=== PATIENT | female | born 1945 | race Caucasian/White ===

== ENCOUNTER 2016-08-30 12:18 | Emergency (ER) | payer MEDICARE ==
[2016-08-30] MEDS ORDERED: ONDANSETRON HCL IV 4 MG/2 ML VIAL IV ONE (12:31)
[2016-08-30] MEDS ORDERED: 0.9 % SODIUM CHLORIDE 1,000 ML BAG IV ONE (12:31)
[2016-08-30] MEDS ORDERED: MORPHINE SULFATE 5 MG/ML PFS IVP ONE ×2 (12:42→15:28)
--- NOTE | 2016-08-30 12:42 | Emergency Department Record ---
History of Present Illness - General Chief Complaint: Abdominal Pain Stated Complaint: ABD PAIN,VOMITING Time Seen by Provider: 08/30/16 12:30 Source: Patient, Family Mode of Arrival: Ambulatory Limitations: No limitations - History of Present Illness Initial Comments: 71 yo female presents with abdominal discomfort starting . The pain is associated with nausea and vomiting. The pain is over the left flank and and back at times. She has had a kidney stone in the past with some similar symptoms. No definite fevers. No diarrhea or blood in the stools. She is having bowel movements. She states she has had decreased PO intake the last 2- 3 days. No rash. She has had her gall bladder removed, appendectomy, 3 C sections, hernia repair. Last surgery was about 10 years ago as [place]. Complaint: Abdominal pain Onset/Timin -: Days(s) Location: LLQ Radiation: L flank Severity: Moderate Quality: Aching Consistency: Constant - Related Data Home Medications Medication Instructions Recorded Confirmed Last Taken Fluticasone Propionate [Flovent] 12 gm IH QID PRN 08/30/16 08/30/16 1 Day Ago Furosemide [Lasix] 20 mg PO DAILY 08/30/16 08/30/16 1 Day Ago Allergies Allergy/AdvReac Type Severity Reaction Status Date / Time codeine AdvReac VOMITING Verified 08/30/16 12:27 Penicillins AdvReac VOMITING Verified 08/30/16 12:27 Travel Screening - Travel/Exposure Within Last 30 Days Have you traveled within the last 30 days?: No - Travel/Exposure Within Last Year Have you traveled outside the [place] in the last year?: No - Additonal Travel Details Have you been exposed to anyone with a communicable illness?: No - Travel Symptoms Symptom Screening: None Review of Systems Constitutional: Denies: Chills, Fever, Malaise, Weakness Eyes: Denies: Eye discharge ENT: Denies: Congestion, Ear pain, Throat pain Respiratory: Denies: Cough, Hemoptysis Cardiovascular: Denies: Chest pain, Palpitations, Syncope Endocrine: Denies: Fatigue, Polydipsia, Polyuria Gastrointestinal: Reports: Abdominal pain, Nausea, Vomiting. Denies: Diarrhea Genitourinary: Denies: Dysuria, Hematuria Musculoskeletal: Reports: Back pain. Denies: Arthralgia, Joint swelling, Myalgia Skin: Denies: Bruising, Change in color, Rash Neurological: Denies: Headache, Weakness Psychiatric: Denies: Anxiety Hematological/Lymphatic: Denies: Blood Clots, Easy bleeding, Easy bruising, Swollen glands Past Medical History - SOCIAL HISTORY Smoking Status: Never smoker Alcohol Use: None Drug Use: None - RESPIRATORY Hx Respiratory Disorders: Yes Hx COPD: Yes - CARDIOVASCULAR Hx Cardio Disorders: Yes Hx Hypertension: Yes - NEURO Hx Neuro Disorders: No - GI Hx GI Disorders: No - Hx Genitourinary Disorders: No - ENDOCRINE Hx Endocrine Disorders: Yes Hx Thyroid Disease: Yes - MUSCULOSKELETAL Hx Musculoskeletal Disorders: No - PSYCH Hx Psych Problems: Yes Hx Anxiety: Yes - HEMATOLOGY/ONCOLOGY Hx Hematology/Oncology Disorders: No Family Medical History Any Significant Family History?: Yes Hx Cancer: Mother, Brother/Sister *Cancer Comment: Leukemia, Lung Cancer Hx Dementia: Mother Hx Heart Disease: Father *Heart Comment: Heart Attack Physical Exam - General General Appearance: Oriented x3, Cooperative, Anxious Limitations: No limitations - Head Head exam: Normal inspection - Eye Eye exam: Normal appearance, PERRL. negative: Conjunctival injection, Periorbital swelling - ENT ENT exam: Normal exam, Mucous membranes moist Ear exam: Normal external inspection Nasal Exam: Normal inspection Mouth exam: Normal external inspection - Neck Neck exam: Normal inspection, Full ROM. negative: Tenderness - Respiratory Respiratory exam: Normal lung sounds bilaterally. negative: Respiratory distress - Cardiovascular Cardiovascular Exam: Regular rate, Normal rhythm, Normal heart sounds - GI/Abdominal GI/Abdominal exam: Soft, Tenderness (tender left lateral abdomen). negative: Diminished bowel sounds, Distended, Guarding, Rigid - Rectal Rectal exam: Deferred - exam: Deferred - Extremities Extremities exam: Normal inspection, Full ROM, Normal capillary refill. negative: Pedal edema, Tenderness - Back Back exam: Reports: Normal inspection, CVA tenderness (L), Full ROM, Tenderness. Denies: Muscle spasm, Rash noted - Neurological Neurological exam: Alert, Normal gait, Oriented X3 - Psychiatric Psychiatric exam: Normal affect, Normal mood - Skin Skin exam: Dry, Intact, Normal color, Warm Course Vital Signs 08/30/16 12:21 Temperature 97.3 F L Pulse Rate 77 Respiratory 18 Rate Blood Pressure 197/91 Pulse Ox 97 - Reevaluation(s) Reevaluation #1: EMR reviewed CT in January 2016 demonstrated 3mm UVJ stone with other bilateral intrarenal stones and diverticulosis without diverticulitis 08/30/16 12:51 Reevaluation #2: The CT scan demonstrated 5mm proximal stone with mild HN. Diverticulosis without diverticulitis. The patient is up to provide a UA. 08/30/16 13:46 08/30/16 13:47 Reevaluation #3: UA is negative for N and LE. 08/30/16 14:44 - Consultations Consultation #1: 15:00 I SEDRICK Lopez and Dr Charles of [facility]. We discussed the 3 days of pain, and vomiting with a proximal 5mm stone. They accept for transfer to ED for evaluation. Medical Decision Making - Lab Data Result diagrams: 08/30/16 12:45 08/30/16 12:45 Disposition Disposition: Transfer Clinical Impression: Kidney stone on left side Disposition: Acute Care Hospital Transfer Transfer To: [facility] Reason For Transfer: Renal Stone Urology Consult Accepting Physician: Nidhi Time Discussed w/Accepting Physician: 15:09 Condition: (2) Stable Forms: Patient Portal Access Time of Disposition: 15:09
[2016-08-30 12:49] LABS: BASO % 0.2 % (0-6); EOS % 0.3 % (0-6); GRAN % 76.9 % (47-80); HEMATOCRIT 45.6 % (35.0-47.0); HEMOGLOBIN 15.1 gm/dl (11.6-16.0); LYMPH % 15.3 % (16-45); MEAN CELL VOLUME 90.5 fl (81-97); MEAN CORPUSCULAR HGB CONC 33.1 g/dl (32-36); MEAN PLATELET VOLUME 9.4 fl (7.4-10.4); MONO % 7.3 % (0-9); PLATELET COUNT 316 K/uL (130-400); RED BLOOD COUNT 5.04 M/uL (3.80-5.40); RED CELL DISTRIBUTION WIDTH 14.1 % (11.5-14.5); WHITE BLOOD COUNT W/O DIFF 11.6 K/uL (4.2-12.2)
[2016-08-30 13:01] LABS: ALB/GLOB RATIO 1.3 (1.1-1.8); ALBUMIN 4.2 gm/dL (3.5-5.0); ALKALINE PHOSPHATASE 92 U/L (38-126); ALT/SGPT 20 U/L (9-52); ANION GAP 9.7 (7-16); AST/SGOT 33 U/L (14-36); BILIRUBIN,TOTAL 0.97 mg/dL (0.2-1.3); BLOOD UREA NITROGEN 30 mg/dL (7-17); CARBON DIOXIDE 28.3 mmol/L (22-30); CREATININE 0.9 mg/dL (0.52-1.04); EST GLOMERULAR FILTRATION RATE > 60 ml/min; GLUCOSE,RANDOM 102 mg/dL (70-110); LIPASE 77 U/L (23-300); TOTAL PROTEIN 7.4 gm/dL (6.3-8.2)
[2016-08-30] MEDS ORDERED: KETOROLAC 30 MG/ML VIAL IVP ONE (13:18)
[2016-08-30] MEDS ORDERED: TAMSULOSIN HCL 0.4 MG CAP.ER.24H PO ONE (13:47)
[2016-08-30 14:38] LABS: URINE APPEARANCE CLEAR; URINE BILIRUBIN SMALL (NEGATIVE); URINE BLOOD SMALL (NEGATIVE); URINE COLOR YELLOW; URINE GLUCOSE (UA) NEGATIVE (NEGATIVE); URINE KETONE NEGATIVE (NEGATIVE); URINE LEUKOCYTE ESTERASE NEGATIVE (NEGATIVE); URINE NITRITE NEGATIVE (NEGATIVE); URINE PROTEIN NEGATIVE (NEGATIVE)
[2016-08-30 14:45] LABS: URINE WBC 0 - 2 (0-2/hpf)
[2016-08-30 14:46] LABS: URINE BACTERIA FEW
[2016-08-30] MEDS ORDERED: 0.9 % SODIUM CHLORIDE 1000ML 1,000 ML IV ONE (15:08)
== END 2016-08-30 15:42 | disposition short-term general hospital (02) ==
LOC: ER 12:18
DX: N13.2 Hydronephrosis with renal and ureteral calculous obstruction (principal); K57.90 Diverticulosis of intestine, part unspecified, without perforation or abscess without bleeding; R11.2 Nausea with vomiting, unspecified; I10 Essential (primary) hypertension; Z87.442 Personal history of urinary calculi
CPT/HCPCS: 74176; 80053; 81001; 83690; 85025; 96361; 96374; 96375; 96376; 99285; J1885; J2405; J7030